=== PATIENT | female | born 1965 | race Caucasian/White ===

== ENCOUNTER → 2017-02-07 | Day surgery (SDC) | payer OTHER ==
[~2017-02-07] MED LIST: ALBUTEROL S3 ML/VIAL NEB; BUSPIRONE HCL30 MG PO; CALCIUM 600 +1 EAC3 PO; CLARITIN10 MG PO; HYDROCODON-ACE1 EAC6 PO; KLONOPIN2 MG PO; LAMICTAL200 MG PO; LIPITOR40 MG PO; LISINOPRIL40 MG PO; NEURONTIN600 MG PO; PREDNISONE10 MG PO; RISPERDAL3 MG PO; SPIRIVA18 MCG IH; SYMBICORT 16010.2 GM IH; SYNTHROID150 MCG PO; ULTRAM50 MG PO; VENTOLIN HFA8 GM IH; ZANAFLEX4 MG PO
== END | disposition home or self-care (01) ==
LOC: SDCH 08:01
DX: Z12.11 Encounter for screening for malignant neoplasm of colon (principal); D12.6 Benign neoplasm of colon, unspecified; I10 Essential (primary) hypertension; J45.909 Unspecified asthma, uncomplicated; R07.9 Chest pain, unspecified; F17.210 Nicotine dependence, cigarettes, uncomplicated; Z86.73 Personal history of transient ischemic attack (TIA), and cerebral infarction without residual deficits; Z98.84 Bariatric surgery status; M19.90 Unspecified osteoarthritis, unspecified site; G89.29 Other chronic pain
CPT/HCPCS: J2704